=== PATIENT | female | born 1955 | race Two or more races ===

== ENCOUNTER 2017-05-23 17:18 | Inpatient (IN) | payer BC ==
[~2017-05-23] VITALS: Ht 160 cm; Wt 54.4 kg
[2017-05-23] MEDS ORDERED: HYDROmorphone 1mg/ml Carpuject IVP ONE ×3 (17:30→21:00)
[2017-05-23 18:16] LABS: BASOPHILS % (AUTO) 0.9 % (0.0-2.0); LYMPHOCYTES % (AUTO) 45.7 % (20.0-45.0); MEAN CORPUSCULAR HEMOGLOBIN 31.7 PG (27.0-31.0); MEAN CORPUSCULAR HGB CONC 34.1 G/DL (32.0-36.0); MEAN CORPUSCULAR VOLUME 93 FL (80-99); MEAN PLATELET VOLUME 5.9 FL (6.5-10.1); MONOCYTES % (AUTO) 5.1 % (1.0-10.0); NEUTROPHILS % (AUTO) 47.2 % (45.0-75.0); PLATELET COUNT 286 K/UL (150-450); RED BLOOD COUNT 4.09 M/UL (4.20-5.40); RED CELL DISTRIBUTION WIDTH 10.9 % (11.6-14.8); WHITE BLOOD COUNT 7.1 K/UL (4.8-10.8)
[2017-05-23 18:38] LABS: ALANINE AMINOTRANSFERASE 12 U/L (3-33); ALBUMIN/GLOBULIN RATIO 1.4 (1.0-2.7); ANION GAP 21 (5-15); ASPARTATE AMINO TRANSFERASE 17 U/L (5-40); CALCIUM 9.2 mg/dL (8.6-10.2); CARBON DIOXIDE 22 mEQ/L (20-30); CHLORIDE 100 mEQ/L (98-107); CREATININE 0.9 mg/dL (0.5-0.9); GLOMERULAR FILTRATION RATE > 60 mL/min (>60); HEMOLYSIS 14; POTASSIUM 3.5 mEQ/L (3.4-4.9); SODIUM 143 mEQ/L (135-145); TOTAL PROTEIN 7.2 g/dL (6.6-8.7)
[2017-05-23 19:15] VITALS: BP 103/59
[2017-05-23] MEDS ORDERED: ESTRADIOL0.5 MG PO (20:08)
--- NOTE | 2017-05-23 21:31 | Consultation ---
DATE OF CONSULTATION: 05/23/2017 ORTHOPEDIC CONSULTATION CONSULTING PHYSICIAN: Pedro Tavares M.D. CHIEF COMPLAINT: Left hip pain. HISTORY OF PRESENT ILLNESS: The patient is a 61-year-old female, who sustained a mechanical fall. She was diagnosed with displaced femoral neck fracture. She was brought to the ER. Orthopedic consultation obtained for further care and recommendation. PAST MEDICAL HISTORY: Reviewed from the intake chart. PAST SURGICAL HISTORY: Reviewed from the intake chart. MEDICATIONS: Reviewed from the intake chart. PHYSICAL EXAMINATION: EXTREMITIES: The patient is in moderate discomfort. She has short and internally rotated left hip. She has posterior calf soft. Dorsalis pedis +2. DIAGNOSTIC DATA: Imaging studies showed displaced femoral neck fracture. ASSESSMENT: Left displaced femoral neck fracture. DISCUSSION: At this point, recommend this patient with left total hip arthroplasty, given her age and activity level. Risks, limitations, expectations, and complications related to the procedure were discussed in detail. All questions were answered. We will proceed with surgery tomorrow. She will be made NPO in anticipation of surgery tomorrow. Risks, limitations, and expectations related to the procedure were discussed in detail. All questions were addressed. Pedro Tavares M.D. DR: SHELLI JOB#: [id number] CC:
[2017-05-23 21:34] VITALS: BP 110/72
[2017-05-23] MEDS ORDERED: Miralax 17gm pkt ORAL PRN (21:45)
[2017-05-23] MEDS ORDERED: Zolpidem 5mg tab ORAL PRN (21:45)
[2017-05-23] MEDS: Morphine Sulfate 2mg/ml Inj IVP PRN (22:31)
[2017-05-23 22:39] VITALS: BP 130/77
--- NOTE | 2017-05-23 23:06 | Emergency Room Report ---
History of Present Illness General Chief Complaint: Pain Source: Patient Present Illness HPI 61-year-old female presents ED complaining of left hip pain and shortening. 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 Denies hitting her head or LOC. Son and bedside and corroborates this story. Patient notes 10 out of 10 pain to the left hip, sharp, nonradiating. Unable to bear weight. No other aggravating relieving factors. Denies any other associated Allergies: Coded Allergies: No Known Allergies (Unverified , 05/23/17) Patient History Past Medical History: none Past Surgical History: none Pertinent Family History: none Social History: Denies: alcohol use, drug use, smoking Now: No Immunizations: UTD Reviewed Nursing Documentation: PMH: Agreed, PSxH: Agreed Nursing Documentation-PMH Past Medical History: No Stated History Review of Systems All Other Systems: negative except mentioned in HPI Physical Exam Vital Signs Date Time Temp Pulse Resp B/P Pulse Ox O2 Delivery O2 Flow Rate FiO2 05/23/17 17:14 98.1 80 16 120/60 100 Room Air 05/23/17 19:15 1.0 Sp02 EP Interpretation: reviewed, normal General Appearance: alert, GCS 15, non-toxic, moderate distress Head: normocephalic, atraumatic Eyes: bilateral eye PERRL, bilateral eye normal inspection ENT: hearing grossly normal, normal pharynx, no angioedema, normal voice Neck: full range of motion, supple/symm/no masses Respiratory: chest non-tender, lungs clear, normal breath sounds, speaking full sentences Cardiovascular #1: regular rate, rhythm, no edema Cardiovascular #2: 2+ carotid (R), 2+ carotid (L), 2+ radial (R), 2+ radial (L) , 2+ dorsalis pedis (R), 2+ dorsalis pedis (L) Gastrointestinal: normal bowel sounds, non tender, soft, non-distended, no guarding, no rebound Rectal: deferred Genitourinary: normal inspection, no CVA tenderness Musculoskeletal: back normal, gait/station normal, tender - shortening L hip Neurologic: alert, oriented x3, responsive, motor strength/tone normal, sensory intact, speech normal Psychiatric: judgement/insight normal, memory normal, mood/affect normal, no suicidal/homicidal ideation Reflexes: 3+ bicep (R), 3+ bicep (L), 3+ tricep (R), 3+ tricep (L), 3+ knee (R) , 3+ knee (L) Skin: normal color, no rash, warm/dry, well hydrated Lymphatic: no adenopathy Medical Decision Making Diagnostic Impression: Primary Impression: Left Hip Fracture ER Course Hospital Course 61-year-old female presents to ED with L hip pain and shortening s/p fall Differential diagnoses include: fracture, dislocation, contusion Clinical course Patient placed on stretcher. After initial history and physical I ordered labs , pain medication and imaging studies Labs reviewed-no leukocytosis noted, electrolytes okay, hemoglobin/hematocrit okay Femur x-ray shows shortening of femur consistent with fracture CT Pelvis shows L femoral neck fx Case discussed with Dr. Tavares who agreed to consult on this case. Case discussed with Dr. Blank who agreed to accept the patient to his service for further care and support i. I feel this is a highly complex case requiring extensive working including EKG/Rhythm strip, Xray/CT/US, Blood/urine lab work, repeat exams while in ED, and administration of strong opiates/narcotics for pain control, admission to hospital or close patient follow up. Diagnosis - L hip fracture Admitted to floor in serious condition Labs Test 05/23/17 17:35 White Blood Count 7.1 K/UL (4.8-10.8) Red Blood Count 4.09 M/UL (4.20-5.40) Hemoglobin 13.0 G/DL (12.0-16.0) Hematocrit 38.0 % (37.0-47.0) Mean Corpuscular Volume 93 FL (80-99) Mean Corpuscular Hemoglobin 31.7 PG (27.0-31.0) Mean Corpuscular Hemoglobin Concent 34.1 G/DL (32.0-36.0) Red Cell Distribution Width 10.9 % (11.6-14.8) Platelet Count 286 K/UL (150-450) Mean Platelet Volume 5.9 FL (6.5-10.1) Neutrophils (%) (Auto) 47.2 % (45.0-75.0) Lymphocytes (%) (Auto) 45.7 % (20.0-45.0) Monocytes (%) (Auto) 5.1 % (1.0-10.0) Eosinophils (%) (Auto) 1.0 % (0.0-3.0) Basophils (%) (Auto) 0.9 % (0.0-2.0) Prothrombin Time 10.0 SEC (9.30-11.50) Prothromb Time International Ratio 1.0 (0.9-1.1) Activated Partial Thromboplast Time 24 SEC (23-33) Sodium Level 143 mEQ/L (135-145) Potassium Level 3.5 mEQ/L (3.4-4.9) Chloride Level 100 mEQ/L (98-107) Carbon Dioxide Level 22 mEQ/L (20-30) Anion Gap 21 (5-15) Blood Urea Nitrogen 19 mg/dL (7-23) Creatinine 0.9 mg/dL (0.5-0.9) Estimat Glomerular Filtration Rate > 60 mL/min (>60) Glucose Level 107 mg/dL (74-106) Calcium Level 9.2 mg/dL (8.6-10.2) Total Bilirubin 0.3 mg/dL (0.0-1.2) Aspartate Amino Transf (AST/SGOT) 17 U/L (5-40) Alanine Aminotransferase (ALT/SGPT) 12 U/L (3-33) Alkaline Phosphatase 40 U/L (35-104) Total Protein 7.2 g/dL (6.6-8.7) Albumin 4.3 g/dL (3.5-5.2) Globulin 2.9 g/dL Albumin/Globulin Ratio 1.4 (1.0-2.7) Other X-Ray Diagnostic Results X-Ray ordered: L femur # of Views/Limited Vs Complete: 3 View EP Interpretation: Yes Interpretation: no dislocation, no soft tissue swelling, other - L femoral neck fx Indication: Pain Impression: Other - L femoral neck fx Interpreting ER Provider: Jose Alejandro Duron MD CT/MRI/US Diagnostic Results CT/MRI/US Diagnostic Results : Imaging Test Ordered: CT Pelvis Impression L femoral neck fx Last Vital Signs Date Time Temp Pulse Resp B/P Pulse Ox O2 Delivery O2 Flow Rate FiO2 05/23/17 22:39 96.4 82 18 130/77 91 Nasal Cannula 2.0 Status: improved Disposition: ADMITTED INPATIENT Condition: Serious Referrals: NON PHYSICIAN (PCP) JOSE ALEJANDRO DURON M.D. May 23, 2017 23:06
[2017-05-24] VITALS (12 sets, daily range): BP systolic 91–130; BP diastolic 50–73
[2017-05-24] MEDS: LORazepam Inj 2mg/ml 1ml IV PRN ×3 (00:26→11:19)
[2017-05-24] MEDS: Morphine Sulfate 2mg/ml Inj IVP PRN ×2 (02:37→06:54)
[2017-05-24 08:00] LABS: BASOPHILS % (AUTO) 0.3 % (0.0-2.0); LYMPHOCYTES % (AUTO) 9.9 % (20.0-45.0); MEAN CORPUSCULAR HEMOGLOBIN 31.9 PG (27.0-31.0); MEAN CORPUSCULAR HGB CONC 34.2 G/DL (32.0-36.0); MEAN CORPUSCULAR VOLUME 93 FL (80-99); MEAN PLATELET VOLUME 6.4 FL (6.5-10.1); MONOCYTES % (AUTO) 5.9 % (1.0-10.0); NEUTROPHILS % (AUTO) 83.9 % (45.0-75.0); PLATELET COUNT 257 K/UL (150-450); RED BLOOD COUNT 3.92 M/UL (4.20-5.40); RED CELL DISTRIBUTION WIDTH 10.5 % (11.6-14.8); WHITE BLOOD COUNT 8.6 K/UL (4.8-10.8)
[2017-05-24 08:05] LABS: ALANINE AMINOTRANSFERASE 12 U/L (3-33); ALBUMIN/GLOBULIN RATIO 1.5 (1.0-2.7); ANION GAP 17 (5-15); ASPARTATE AMINO TRANSFERASE 15 U/L (5-40); CALCIUM 8.4 mg/dL (8.6-10.2); CARBON DIOXIDE 23 mEQ/L (20-30); CHLORIDE 98 mEQ/L (98-107); CHOLESTEROL 197 mg/dL (< 200); CHOLESTEROL/HDL RATIO 2.1 (3.3-4.4); CREATININE 0.6 mg/dL (0.5-0.9); GLOMERULAR FILTRATION RATE > 60 mL/min (>60); HEMOLYSIS 4; LDL CHOLESTEROL (CALC.) 96 mg/dL (60-99); POTASSIUM 3.7 mEQ/L (3.4-4.9); SODIUM 138 mEQ/L (135-145); TOTAL PROTEIN 6.6 g/dL (6.6-8.7)
[2017-05-24] MEDS ORDERED: D5 1/2NS 1,000 ML IV SCH (10:00)
[2017-05-24] MEDS ORDERED: Morphine Sulfate 2mg/ml Inj IVP PRN ×3 (10:00→16:15)
--- NOTE | 2017-05-24 12:04 | Anethesia Preoperative Eval ---
Anesthesia Pre-op PMH/ROS General Date of Evaluation: May 24, 2017 Time of Evaluation: 11:59 Anesthesiologist: Keerthi ASA Score: ASA 2 Mallampati Score Class I : Soft palate, uvula, fauces, pillars visible Class II: Soft palate, uvula, fauces visible Class III: Soft palate, base of uvula visible Class IV: Only hard plate visible Mallampati Classification: Class II Surgeon: Chaitanya Diagnosis: L femoral neck Fx Surgical Procedure: L total hip arthroplasty Anesthesia History: none Family History: no anesthesia problems Allergies: Coded Allergies: No Known Allergies (Unverified , 05/23/17) Medications: see eMAR Past Medical History Cardiovascular: Denies: CAD, HTN, NV, arrhythmia, other, valve dz Pulmonary: Denies: COPD, KENDRA, asthma, other Gastrointestinal/Genitourinary: Reports: GERD - mild, Denies: CRI, ESRD, other Neurologic/Psychiatric: Denies: CVA, TIA, dementia, depression/anxiety, other Endocrine: Denies: DM, hypothyroidism, other, steroids HEENT: Denies: WASHOE (L), WASHOE (R), cataract (L), cataract (R), glaucoma, other Hematology/Immune: Denies: DVT, anemia, bleeding disorder, other Musculoskeletal/Integumentary: Reports: other - osteoporosis, Denies: DDD, DJD, OA, RA, edema PMH Narrative: admitted for acute fracture 2-ry to mechanical fall . PSxH Narrative: Dental Sx Anesthesia Pre-op Phys. Exam Physician Exam Last Vital Signs Date Time Temp Pulse Resp B/P Pulse Ox O2 Delivery O2 Flow Rate FiO2 05/24/17 08:29 97.0 79 19 107/63 99 Room Air 05/23/17 22:39 2.0 Constitutional: NAD Neurologic: CN 2-12 intact Cardiovascular: RRR, no M/R/G Respiratory: CTA Gastrointestinal: S/NT/ND Airway Exam Mallampati Score: Class II MO: limited Neck: stiff ROM: limited Teeth: intact Dentures: no lower, no upper Anesthesia Pre-op A/P Labs Hematology Test 05/23/17 17:35 05/24/17 07:30 White Blood Count 7.1 K/UL (4.8-10.8) 8.6 K/UL (4.8-10.8) Red Blood Count 4.09 M/UL (4.20-5.40) L 3.92 M/UL (4.20-5.40) L Hemoglobin 13.0 G/DL (12.0-16.0) 12.5 G/DL (12.0-16.0) Hematocrit 38.0 % (37.0-47.0) 36.5 % (37.0-47.0) L Mean Corpuscular Volume 93 FL (80-99) 93 FL (80-99) Mean Corpuscular Hemoglobin 31.7 PG (27.0-31.0) H 31.9 PG (27.0-31.0) H Mean Corpuscular Hemoglobin Concent 34.1 G/DL (32.0-36.0) 34.2 G/DL (32.0-36.0) Red Cell Distribution Width 10.9 % (11.6-14.8) L 10.5 % (11.6-14.8) L Platelet Count 286 K/UL (150-450) 257 K/UL (150-450) Mean Platelet Volume 5.9 FL (6.5-10.1) L 6.4 FL (6.5-10.1) L Neutrophils (%) (Auto) 47.2 % (45.0-75.0) 83.9 % (45.0-75.0) H Lymphocytes (%) (Auto) 45.7 % (20.0-45.0) H 9.9 % (20.0-45.0) L Monocytes (%) (Auto) 5.1 % (1.0-10.0) 5.9 % (1.0-10.0) Eosinophils (%) (Auto) 1.0 % (0.0-3.0) 0.0 % (0.0-3.0) Basophils (%) (Auto) 0.9 % (0.0-2.0) 0.3 % (0.0-2.0) Coagulation Test 05/23/17 17:35 Prothrombin Time 10.0 SEC (9.30-11.50) Prothromb Time International Ratio 1.0 (0.9-1.1) Activated Partial Thromboplast Time 24 SEC (23-33) Chemistry Test 05/23/17 17:35 05/24/17 07:30 Sodium Level 143 mEQ/L (135-145) 138 mEQ/L (135-145) Potassium Level 3.5 mEQ/L (3.4-4.9) 3.7 mEQ/L (3.4-4.9) Chloride Level 100 mEQ/L (98-107) 98 mEQ/L (98-107) Carbon Dioxide Level 22 mEQ/L (20-30) 23 mEQ/L (20-30) Anion Gap 21 (5-15) H 17 (5-15) H Blood Urea Nitrogen 19 mg/dL (7-23) 14 mg/dL (7-23) Creatinine 0.9 mg/dL (0.5-0.9) 0.6 mg/dL (0.5-0.9) Estimat Glomerular Filtration Rate > 60 mL/min (>60) > 60 mL/min (>60) Glucose Level 107 mg/dL (74-106) H 127 mg/dL (74-106) H Calcium Level 9.2 mg/dL (8.6-10.2) 8.4 mg/dL (8.6-10.2) L Total Bilirubin 0.3 mg/dL (0.0-1.2) 0.4 mg/dL (0.0-1.2) Aspartate Amino Transf (AST/SGOT) 17 U/L (5-40) 15 U/L (5-40) Alanine Aminotransferase (ALT/SGPT) 12 U/L (3-33) 12 U/L (3-33) Alkaline Phosphatase 40 U/L (35-104) 36 U/L (35-104) Total Protein 7.2 g/dL (6.6-8.7) 6.6 g/dL (6.6-8.7) Albumin 4.3 g/dL (3.5-5.2) 4.0 g/dL (3.5-5.2) Globulin 2.9 g/dL 2.6 g/dL Albumin/Globulin Ratio 1.4 (1.0-2.7) 1.5 (1.0-2.7) Triglycerides Level 44 mg/dL (< 150) Cholesterol Level 197 mg/dL (< 200) LDL Cholesterol 96 mg/dL (60-99) HDL Cholesterol 92 mg/dL (> 60) H Cholesterol/HDL Ratio 2.1 (3.3-4.4) L Thyroid Stimulating Hormone (TSH) 2.300 uIU/mL (0.300-4.500) Studies Pre-op Studies: EKG - NSR Risk Assessment & Plan Assessment: ASA 2 Plan: SAB vs GA Status Change Before Surgery: No Pre-Antibiotics Drug: as scheduled TOM SALAS M.D. May 24, 2017 12:04
--- NOTE | 2017-05-24 12:05 | Diagnostic Imaging Report ---
Indications: Fall, left thigh trauma and pain Technique: 2 views left thigh Findings: Comparison: None There is a displaced fracture through the subcapital region of the left femoral neck. Mild comminution is suggested. No underlying obvious lytic destructive process. No dislocation, joint space widening, or other acute change identified. IMPRESSION: Displaced fracture left femoral neck
[2017-05-24] MEDS ORDERED: HYDROmorphone 1mg/ml Carpuject IVP PRN (12:15)
--- NOTE | 2017-05-24 13:30 | Diagnostic Imaging Report ---
Indications: Fall, pelvic injury and pain Technique: Continuous helical CT imaging of the pelvis was performed with automatic exposure control on a Siemens sensation [address] scanner. Axial, coronal, sagittal images reconstructed at 3 mm slice thickness. CTDI volume(s): 13 mGy Total DLP: 321 mGy-cm Firings: Comparison: Left femur radiographs performed earlier today Is a fracture through the subcapital region of the left femoral neck with mild comminution. Distal fragment demonstrates partial bone with anterior displacement and posterior angulation relative to the head. No underlying lytic destructive process identified. No significant surrounding soft tissue swelling/fluid. No additional fracture, dislocation, joint space widening, or other acute change identified. L5-S1 disc space mildly narrowed with mild marginal osteophyte formation. IMPRESSION: Left femoral neck fracture as described, acuity indeterminate No other evidence of acute injury Mild degenerative spondylosis
[2017-05-24] MEDS ORDERED: Morphine Sulfate PF 0 ML ONE (14:06)
[2017-05-24] MEDS ORDERED: Kenalog-10 5ml Inj ONE (14:06)
[2017-05-24] MEDS ORDERED: Bupivacaine w/Epi 0.25% 30ml Vial INJ ONE ×2 (14:07→17:35)
[2017-05-24] MEDS ORDERED: Bacitracin 50000 Units Vial ONE (14:07)
[2017-05-24] MEDS ORDERED: Ketorolac 30mg Inj ONE (14:07)
--- NOTE | 2017-05-24 14:14 | History and Physical ---
History of Present Illness General Date patient seen: May 24, 2017 Reason for Hospitalization: Pain Present Illness HPI 61-year-old female without any significant PMHx presented to ED complaining of left hip pain . 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 Denies hitting her head or LOC. . Unable to bear weight. No other aggravating relieving factors. Denies any other associated symptoms. Initial xr showed Left Hip fracture. Pts family has contacted their orthopedist of choice. Allergies: Coded Allergies: No Known Allergies (Unverified , 05/23/17) Medication History Scheduled Estradiol (Estradiol), 0.5 MG PO DAILY, (Reported) Patient History Healthcare decision maker Resuscitation status Advanced Directive on File Review of Systems All Other Systems: negative except mentioned in HPI Physical Exam General Appearance: WD/WN, alert Lines, tubes and drains: peripheral, central line HEENT: normocephalic, atraumatic Neck: non-tender, normal alignment Respiratory/Chest: chest wall non-tender, lungs clear Breasts: no masses Cardiovascular/Chest: normal rate Abdomen: normal bowel sounds, soft Genitourinary/Rectal: normal genital exam Extremities: normal range of motion Skin Exam: normal pigmentation Neurologic: director information security II-XII grossly normal Last 24 Hour Vital Signs Date Time Temp Pulse Resp B/P Pulse Ox O2 Delivery O2 Flow Rate FiO2 05/24/17 12:02 97.0 89 21 118/68 95 Room Air 05/24/17 08:29 97.0 79 19 107/63 99 Room Air 05/24/17 04:00 98.4 78 19 130/73 91 Room Air 05/24/17 03:37 98.1 05/24/17 00:31 98.1 74 20 125/67 89 Room Air 05/23/17 22:39 96.4 82 18 130/77 91 Nasal Cannula 2.0 05/23/17 22:16 97.3 05/23/17 21:34 97.3 84 24 103/59 95 Nasal Cannula 1.0 05/23/17 21:34 97.3 78 24 110/72 97 Nasal Cannula 1.0 05/23/17 19:15 97.3 84 24 103/59 95 Nasal Cannula 1.0 05/23/17 17:14 98.1 80 16 120/60 100 Room Air Intake and Output 05/23/17 05/24/17 19:00 07:00 Intake Total 290 ml Output Total 150 ml Balance 140 ml Intake Oral 290 ml Output Urine Total 150 ml # Voids 2 # Bowel Movements 1 Laboratory Tests Test 05/23/17 17:35 05/24/17 07:30 White Blood Count 7.1 K/UL (4.8-10.8) 8.6 K/UL (4.8-10.8) Red Blood Count 4.09 M/UL (4.20-5.40) L 3.92 M/UL (4.20-5.40) L Hemoglobin 13.0 G/DL (12.0-16.0) 12.5 G/DL (12.0-16.0) Hematocrit 38.0 % (37.0-47.0) 36.5 % (37.0-47.0) L Mean Corpuscular Volume 93 FL (80-99) 93 FL (80-99) Mean Corpuscular Hemoglobin 31.7 PG (27.0-31.0) H 31.9 PG (27.0-31.0) H Mean Corpuscular Hemoglobin Concent 34.1 G/DL (32.0-36.0) 34.2 G/DL (32.0-36.0) Red Cell Distribution Width 10.9 % (11.6-14.8) L 10.5 % (11.6-14.8) L Platelet Count 286 K/UL (150-450) 257 K/UL (150-450) Mean Platelet Volume 5.9 FL (6.5-10.1) L 6.4 FL (6.5-10.1) L Neutrophils (%) (Auto) 47.2 % (45.0-75.0) 83.9 % (45.0-75.0) H Lymphocytes (%) (Auto) 45.7 % (20.0-45.0) H 9.9 % (20.0-45.0) L Monocytes (%) (Auto) 5.1 % (1.0-10.0) 5.9 % (1.0-10.0) Eosinophils (%) (Auto) 1.0 % (0.0-3.0) 0.0 % (0.0-3.0) Basophils (%) (Auto) 0.9 % (0.0-2.0) 0.3 % (0.0-2.0) Prothrombin Time 10.0 SEC (9.30-11.50) Prothromb Time International Ratio 1.0 (0.9-1.1) Activated Partial Thromboplast Time 24 SEC (23-33) Sodium Level 143 mEQ/L (135-145) 138 mEQ/L (135-145) Potassium Level 3.5 mEQ/L (3.4-4.9) 3.7 mEQ/L (3.4-4.9) Chloride Level 100 mEQ/L (98-107) 98 mEQ/L (98-107) Carbon Dioxide Level 22 mEQ/L (20-30) 23 mEQ/L (20-30) Anion Gap 21 (5-15) H 17 (5-15) H Blood Urea Nitrogen 19 mg/dL (7-23) 14 mg/dL (7-23) Creatinine 0.9 mg/dL (0.5-0.9) 0.6 mg/dL (0.5-0.9) Estimat Glomerular Filtration Rate > 60 mL/min (>60) > 60 mL/min (>60) Glucose Level 107 mg/dL (74-106) H 127 mg/dL (74-106) H Calcium Level 9.2 mg/dL (8.6-10.2) 8.4 mg/dL (8.6-10.2) L Total Bilirubin 0.3 mg/dL (0.0-1.2) 0.4 mg/dL (0.0-1.2) Aspartate Amino Transf (AST/SGOT) 17 U/L (5-40) 15 U/L (5-40) Alanine Aminotransferase (ALT/SGPT) 12 U/L (3-33) 12 U/L (3-33) Alkaline Phosphatase 40 U/L (35-104) 36 U/L (35-104) Total Protein 7.2 g/dL (6.6-8.7) 6.6 g/dL (6.6-8.7) Albumin 4.3 g/dL (3.5-5.2) 4.0 g/dL (3.5-5.2) Globulin 2.9 g/dL 2.6 g/dL Albumin/Globulin Ratio 1.4 (1.0-2.7) 1.5 (1.0-2.7) Triglycerides Level 44 mg/dL (< 150) Cholesterol Level 197 mg/dL (< 200) LDL Cholesterol 96 mg/dL (60-99) HDL Cholesterol 92 mg/dL (> 60) H Cholesterol/HDL Ratio 2.1 (3.3-4.4) L Thyroid Stimulating Hormone (TSH) 2.300 uIU/mL (0.300-4.500) Height (Feet): 5 Height (Inches): 3.00 Weight (Pounds): 120 Medications Current Medications Medications (Trade) Dose Ordered Sig/Snow Route PRN Reason Start Time Stop Time Status Last Admin Dose Admin Acetaminophen (Tylenol) 650 mg Q4H PRN ORAL fever 05/23/17 21:45 06/22/17 21:44 Al Hydroxide/Mg Hydroxide (Mylanta II) 30 ml Q6H PRN ORAL dyspepsia 05/23/17 21:45 06/22/17 21:44 Dextrose STAT PRN IV Hypoglycemia 05/23/17 21:45 06/22/17 21:44 Dextrose/Sodium Chloride (D5 0.45% NS) 1,000 ml @ 50 mls/hr Q20H IV 05/24/17 10:00 06/23/17 09:59 05/24/17 10:02 Hydromorphone HCl (Dilaudid) 1 mg Q3H PRN IVP Severe Pain (Pain Scale 7-10) 05/24/17 12:15 05/31/17 12:14 Lorazepam (Ativan 2mg/ml 1ml) 0.5 mg Q4H PRN IV For Anxiety 05/23/17 21:45 05/30/17 21:44 05/24/17 11:19 Ondansetron HCl (Zofran) 4 mg Q6H PRN IVP Nausea & Vomiting 05/23/17 21:45 06/22/17 21:44 Polyethylene Glycol (Miralax) 17 gm HSPRN PRN ORAL Constipation 05/23/17 21:45 06/22/17 21:44 Zolpidem Tartrate (Ambien) 5 mg HSPRN PRN ORAL Insomnia 05/23/17 21:45 06/22/17 21:44 Assessment/Plan Problem List: (1) Hip fracture ICD Codes: S72.009A - Fracture of unspecified part of neck of unspecified femur , initial encounter for closed fracture SNOMED: 053016091 Assessment/Plan symptomatic treatment pain control dvt prophylaxis NPO when pt is going to surgery. YFN POLLOCK May 24, 2017 14:14
--- NOTE | 2017-05-24 14:39 | Diagnostic Imaging Report ---
APPROVED REPORT CPT Code: 06575 Present Symptoms Comments: Hip Fracture BILATERAL: Imaging reveals a patent deep venous system bilaterally. There is no evidence of thrombus within the femoral, popliteal or tibial segments. The greater saphenous veins are also within normal limits. Doppler indicates normal spontaneous flow within these segments.
[2017-05-24] MEDS ORDERED: Bupivacaine 0.5% Inj 30 ml vial INJ ONE (14:41)
[2017-05-24] MEDS ORDERED: Duramorph PF 5mg/10ml amp ONE (14:41)
[2017-05-24] MEDS ORDERED: Sterile Water Irrig 1000ml IRRIG ONE (16:00)
[2017-05-24] MEDS ORDERED: NS Irrig 1000ml ONE (16:00)
[2017-05-24] MEDS ORDERED: Propofol 10mg/ml 20ml IV ONE (16:00)
[2017-05-24] MEDS ORDERED: LR 1000ml ONE (16:00)
[2017-05-24] MEDS ORDERED: Midazolam 2mg/2ml Inj ONE (16:00)
[2017-05-24] MEDS ORDERED: fentaNYL 100 mcg/2 mL IV ONE (16:00)
--- NOTE | 2017-05-24 16:02 | Pre-Procedure Note/Attestation ---
Pre-Procedure Note/Attestation Complete Prior to Procedure Planned Procedure: left Procedure Narrative: eryn Indications for Procedure Pre-Operative Diagnosis: left femoral neck fracture Attestation I attest that I discussed the nature of the procedure; its benefits; risks and complications; and alternatives (and the risks and benefits of such alternatives ), prior to the procedure, with the patient (or the patient's legal billing representative). I attest that, if there was a reasonable possibility of needing a blood transfusion, the patient (or the patient's legal billing representative) was given the [facility] standardized written summary, pursuant to the Candido Rafa Blood Safety Act ([place] Health and Safety Code # 1645, as amended). I attest that I re-evaluated the patient just prior to the surgery and that there has been no change in the patient's H&P, except as documented below: MARISSA WESTBROOK May 24, 2017 16:02
--- NOTE | 2017-05-24 16:07 | Operative Note - PDOC ---
Operative Note Operative Note Pre-op Diagnosis: left femoral neck fracture Procedure: left eryn Post-op Diagnosis: same as pre-op plus Operative Findings: consistent w/pre-op dx studies Anesthesia: regional Specimen: none Complications: none Condition: stable Estimated Blood Loss: none Drains: none Implant(s) used?: Yes MARISSA WESTBROOK May 24, 2017 16:07
[2017-05-24] MEDS ORDERED: Milk of Magnesia 30ml Ud ORAL PRN (16:15)
[2017-05-24] MEDS ORDERED: Morphine Sulfate 4mg/ml Inj IVP PRN (16:15)
[2017-05-24] MEDS ORDERED: oxyCODONE 5mg IR tab ORAL PRN (16:15)
[2017-05-24] MEDS ORDERED: Tranexamic Acid 1,000 MG in NS 65 ML IVPB ONE (16:20)
[2017-05-24] MEDS ORDERED: Hydromorphone 0.5mg/0.5ml inj IVP PRN (17:00)
[2017-05-24] MEDS ORDERED: Midazolam 2mg/2ml Inj IVP PRN (17:00)
[2017-05-24] MEDS ORDERED: DiphenhydrAMINE 50mg/ml Inj IVP PRN (17:00)
[2017-05-24] MEDS ORDERED: LR 1000ml 1,000 ML IVLG SCH (17:30)
--- NOTE | 2017-05-24 18:53 | Immediate Post-Op Evaluation ---
Immediate Post-Op Evalulation Immediate Post-Op Evalulation Procedure: L total hip arthroplasty Date of Evaluation: May 24, 2017 Time of Evaluation: 18:10 IV Fluids: 1200 Blood Products: none Estimated Blood Loss: 250 Urinary Output: 200 Blood Pressure Systolic: 104 Blood Pressure Diastolic: 58 Pulse Rate: 72 Respiratory Rate: 20 O2 Sat by Pulse Oximetry: 99 Temperature (Fahrenheit): 97.6 Pain Score (1-10): 2 Nausea: No Vomiting: No Complications none Patient Status: awake, patent, none Hydration Status: adequate TOM SALAS M.D. May 24, 2017 18:53
[2017-05-24] MEDS: D5 1/2NS w/KCl 20mEq 1,000 ML IV SCH (21:27)
[2017-05-24] MEDS: Docusate 100mg cap ORAL SCH (21:27)
[2017-05-24] MEDS: Aspirin EC 325mg tab ORAL SCH (21:27)
[2017-05-24] MEDS: ceFAZolin sod 2 GM in D5W 110 ML IV SCH (21:28)
[2017-05-24] MEDS: oxyCONTIN 20mg tab ORAL SCH (21:28)
[2017-05-25] VITALS: BP 101/54
--- NOTE | 2017-05-25 03:45 | Operative Note - Dictated ---
DATE OF OPERATION: 05/24/2017 NOTE: "POOR AUDIO QUALITY" PREOPERATIVE DIAGNOSES: 1. Left displaced femoral neck fracture. 2. Left hip arthritis. POSTOPERATIVE DIAGNOSES: 1. Left displaced femoral neck fracture. 2. Left hip arthritis. PROCEDURE: Left total hip arthroplasty. SURGEON: Pedro Tavares M.D. ANESTHESIA: Spinal with local. INDICATION FOR PROCEDURE: The patient is a 61-year-old female, who sustained a mechanical fall. She was diagnosed with displaced femoral neck fracture. She was indicated for operative fixation with left total hip arthroplasty. Alternatives including hemiarthroplasty was discussed with the patient. Pros and cons for each were discussed. Given her age and activity level, total hip replacement was selected. Risks, limitations, expectations, and complications of procedure were discussed in detail. All questions were addressed. DESCRIPTION OF PROCEDURE: After informed consent was obtained, the patient was brought to the operating room and placed under spinal anesthesia. Mclean catheter was placed. Ancef was administered. The patient was then carefully placed in a lateral decubitus position. Left hip was prepped and draped in a sterile manner. Time-out was performed. Posterior lateral skin incision was then made. Fascia ora was incised. Piriformis was identified. The piriformis and short external rotation was performed. The capsule was teed and tagged with #2 FiberWire. In situ neck cut was made below the femoral neck fracture was made. Femoral head was removed. Sequential reaming up to 47 was performed. A 50 mm shell was selected. It was impacted into place. A neutral liner was then placed. Sequential broaching up to size 4 was performed. A size 4 high offset 0 head neck combo was selected. Hip was reduced. Radiographs showed the leg lengths were equal. It seemed like there was more anteversion than I would like. The femoral component was removed. The acetabulum was evaluated. It seemed to be displaced a little bit, therefore, it was corrected and the 50 mm was again impacted into place. This seemed like it was little bit too loose. There may be some impaction grafting of the cancellous bone causing loosening which compromising the fixation; therefore, this was removed. A 50 mm reamer was then placed and then the acetabulum was then reamed and a 52 mm shell was then selected and impacted into place. It was nice and secured. Neutral liner was placed along with the final implants. Hip was taken through the range of motion. Hip flexed to 130 degrees, 90 degrees flexion internal rotation 60 degrees extension and external rotation, leg lengths were equal. At this point, the capsule was approximated with #1 Vicryl suture, 2-0 Vicryl suture, 3-0 Monocryl sutures, and Dermabond. Compression dressing was applied. The patient was awoken and taken to recovery room with stable signs. ESTIMATED BLOOD LOSS: 50 mL. COMPLICATIONS: None. SPECIMENS: Femoral head. IMPLANTS: A size 52 mm acetabular component with neutral liner, size 4 high offset 0 head neck combo, and wasted acetabular size 50 mm acetabular component with neutral liner. Pedro Tavares M.D. DR: MARK JOB#: [id number] CC: BROOKE
[2017-05-25 04:00] VITALS: BP 91/60
[2017-05-25] MEDS: ceFAZolin sod 2 GM in D5W 110 ML IV SCH (05:48)
[2017-05-25 07:05] LABS: MEAN CORPUSCULAR HGB CONC 32.5 G/DL (32.0-36.0); MEAN CORPUSCULAR VOLUME 95 FL (80-99); MEAN PLATELET VOLUME 6.7 FL (6.5-10.1); PLATELET COUNT 220 K/UL (150-450); RED BLOOD COUNT 3.44 M/UL (4.20-5.40); RED CELL DISTRIBUTION WIDTH 10.9 % (11.6-14.8); WHITE BLOOD COUNT 10.2 K/UL (4.8-10.8)
[2017-05-25 07:30] LABS: ANION GAP 10 (5-15); CALCIUM 8.2 mg/dL (8.6-10.2); CARBON DIOXIDE 25 mEQ/L (20-30); CHLORIDE 103 mEQ/L (98-107); CREATININE 0.7 mg/dL (0.5-0.9); GLOMERULAR FILTRATION RATE > 60 mL/min (>60); HEMOLYSIS 2; POTASSIUM 4.1 mEQ/L (3.4-4.9); SODIUM 138 mEQ/L (135-145)
[2017-05-25 08:00] VITALS: BP 105/60
[2017-05-25] MEDS: Aspirin EC 325mg tab ORAL SCH ×2 (09:27→18:55)
[2017-05-25] MEDS: D5 1/2NS w/KCl 20mEq 1,000 ML IV SCH ×2 (09:28→22:20)
[2017-05-25] MEDS: oxyCONTIN 20mg tab ORAL SCH ×2 (09:28→21:07)
[2017-05-25] MEDS: celeBREX 200mg Cap **SURGERY PATIENTS ONLY ORAL SCH (09:28)
[2017-05-25] MEDS: Docusate 100mg cap ORAL SCH ×3 (09:28→18:55)
--- NOTE | 2017-05-25 09:29 | 48 Hour Post Anesthesia Eval ---
Post Anesthesia Evaluation Procedure: L total hip arthroplasty Date of Evaluation: May 25, 2017 Time of Evaluation: 07:11 Blood Pressure Systolic: 105 0: 60 Pulse Rate: 77 Respiratory Rate: 16 Temperature (Fahrenheit): 98.2 O2 Sat by Pulse Oximetry: 93 Airway: patent Nausea: No Vomiting: No Pain Intensity: 2 Hydration Status: adequate Cardiopulmonary Status: Stable Mental Status/LOC: patient returned to baseline Follow-up Care/Observations: 0 Post-Anesthesia Complications: 0 Follow-up care needed: N/A Fernando Becker MD May 25, 2017 09:29
[2017-05-25 09:52] LABS: BAND NEUTROPHILS % (MANUAL) 0 % (0-8); BASOPHILS % (MANUAL) 0 % (0-2); EOSINOPHILS % (MANUAL) 0 % (0-3); HYPOCHROMASIA 1+; LYMPHOCYTES % (MANUAL) 5 % (20-45); NEUTROPHILS % (MANUAL) 88 % (45-75); PLATELET ESTIMATE ADEQUATE; PLATELET MORPHOLOGY NORMAL; TOTAL CELLS COUNTED 100
--- NOTE | 2017-05-25 10:25 | Diagnostic Imaging Report ---
Indication: POST-OP Technique: One view of the pelvis intraoperative Comparison: 05/23/2017 Findings: Single intraoperative image demonstrates an acetabular cup and a left femoral broach Impression: Intraoperative imaging, as described
[2017-05-25 12:00] VITALS: BP 131/68
--- NOTE | 2017-05-25 12:30 | Progress Note ---
DATE: 05/25/2017 SUBJECTIVE: The patient is postop day #1, status post left total hip arthroplasty. She is actually doing very well. She is tolerating by p.o.. She has minimal pain. PHYSICAL EXAMINATION: Examination shows the patient is alert and oriented. She is resting comfortably in bed. Vital signs afebrile. Stable vital signs. Left hip incision is clean, dry, and intact. The patient reflexes tender fingers or toes. Posterior calf is soft. IMAGING: Imaging studies show implant in good position. ASSESSMENT: Status post left total hip arthroplasty. DISCUSSION: At this point, we are going to discontinue the catheter. We are going to workup with PT.OT. We will work on discharge plan for the patient. She will be maintained on aspirin for DVT prophylaxis given her age, activity level, and prophylaxis. Pedro Tavares M.D. DR: MICHAEL JOB#: [id number] CC:
--- NOTE | 2017-05-25 15:21 | Pulmonology Progress Note ---
Assessment/Plan Problems: (1) Hip fracture Assessment/Plan tolerated surgery very well d/c abx, had skin rash benadryl prn dc planning in am Subjective ROS Limited/Unobtainable: No Constitutional: Reports: no symptoms HEENT: Repors: no symptoms Respiratory: Reports: no symptoms Cardiovascular: Reports: no symptoms Allergies: Coded Allergies: No Known Allergies (Unverified , 05/23/17) Objective Last 24 Hour Vital Signs Date Time Temp Pulse Resp B/P Pulse Ox O2 Delivery O2 Flow Rate FiO2 05/25/17 12:00 97.9 73 18 131/68 94 Room Air 05/25/17 09:29 77 16 93 05/25/17 08:00 98.2 77 16 105/60 93 Room Air 05/25/17 04:00 96.9 74 18 91/60 93 Room Air 05/25/17 00:00 98.4 92 18 101/54 92 Nasal Cannula 4.0 05/24/17 20:00 98.3 77 18 107/54 96 Nasal Cannula 4.0 05/24/17 19:05 98.8 71 20 102/50 100 Nasal Cannula 2.0 05/24/17 19:00 71 20 102/50 100 Nasal Cannula 2.0 05/24/17 18:53 72 20 99 05/24/17 18:45 72 20 101/51 100 Nasal Cannula 2.0 05/24/17 18:30 72 20 106/52 100 Nasal Cannula 2.0 05/24/17 18:14 80 20 102/53 100 Nasal Cannula 2.0 05/24/17 18:09 75 20 108/56 100 Nasal Cannula 2.0 05/24/17 18:04 98.8 78 20 91/62 100 Simple Mask 8.0 Intake and Output 05/24/17 05/25/17 19:00 07:00 Intake Total 1150 ml 1095 ml Output Total 450 ml 1275 ml Balance 700 ml -180 ml Intake Oral 240 ml IV Total 1150 ml 855 ml Output Urine Total 250 ml 1275 ml Estimated Blood Loss 200 ml General Appearance: WD/WN HEENT: normocephalic, atraumatic Respiratory/Chest: chest wall non-tender, lungs clear Cardiovascular: normal peripheral pulses Abdomen: normal bowel sounds, soft, non tender, no organomegaly Extremities: no cyanosis, no clubbing Skin: no lesions 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, no motor/sensory deficits Laboratory Tests 05/25/17 05:20: Sodium Level 138, Potassium Level 4.1, Chloride Level 103, Carbon Dioxide Level 25, Anion Gap 10, Blood Urea Nitrogen 12, Creatinine 0.7, Estimat Glomerular Filtration Rate > 60, Glucose Level 172H, Calcium Level 8.2L 05/25/17 05:25: White Blood Count 10.2, Red Blood Count 3.44L, Hemoglobin 10.7L, Hematocrit 32.8L, Mean Corpuscular Volume 95, Mean Corpuscular Hemoglobin 31.0, Mean Corpuscular Hemoglobin Concent 32.5, Red Cell Distribution Width 10.9L, Platelet Count 220, Mean Platelet Volume 6.7, Neutrophils (%) (Auto) , Lymphocytes (%) (Auto) , Monocytes (%) (Auto) , Eosinophils (%) (Auto) , Basophils (%) (Auto) , Differential Total Cells Counted 100, Neutrophils % ( Manual) 88H, Lymphocytes % (Manual) 5L, Monocytes % (Manual) 7, Eosinophils % ( Manual) 0, Basophils % (Manual) 0, Band Neutrophils 0, Platelet Estimate Adequate, Platelet Morphology Normal, Hypochromasia 1+ Current Medications Medications (Trade) Dose Ordered Sig/Snow Route PRN Reason Start Time Stop Time Status Last Admin Dose Admin Al Hydroxide/Mg Hydroxide (Mylanta II) 30 ml Q6H PRN ORAL dyspepsia 05/23/17 21:45 06/22/17 21:44 Aspirin (Ecotrin) 325 mg BID ORAL 05/24/17 21:00 06/23/17 20:59 05/25/17 09:27 Celecoxib (CeleBREX) 200 mg DAILY ORAL 05/25/17 09:00 06/24/17 08:59 05/25/17 09:28 Dextrose STAT PRN IV Hypoglycemia 05/23/17 21:45 06/22/17 21:44 Dextrose/ Electrolytes (D5 0.45%NS W/ KCl 20mEq) 1,000 ml @ 75 mls/hr [id number] IV 05/24/17 20:00 06/23/17 19:59 05/25/17 09:28 Diphenhydramine HCl (Benadryl) 25 mg Q6H PRN ORAL Itching 05/25/17 07:00 06/24/17 06:59 05/25/17 12:39 Docusate Sodium (Colace) 100 mg THREE TIMES A DAY ORAL 05/24/17 21:00 06/23/17 20:59 05/25/17 12:39 Ferrous Sulfate (Feosol) 325 mg THREE TIMES A DAY ORAL 05/24/17 21:00 06/23/17 20:59 05/25/17 12:39 Lorazepam (Ativan 2mg/ml 1ml) 0.5 mg Q4H PRN IV For Anxiety 05/23/17 21:45 05/30/17 21:44 05/24/17 11:19 Magnesium Hydroxide (Mom) 30 ml DAILYPRN PRN ORAL Constipation Second Line Agent 05/24/17 16:15 06/23/17 16:14 Morphine Sulfate (Morphine Sulfate) 1 mg Q3H PRN IVP Pain scale 1-3 05/24/17 16:15 05/31/17 16:14 Morphine Sulfate (Morphine Sulfate) 2 mg Q3H PRN IVP Moderate Pain (Pain Scale 4-6) 05/24/17 16:15 05/31/17 16:14 Morphine Sulfate (Morphine Sulfate) 4 mg Q3H PRN IVP Severe Pain (Pain Scale 7-10) 05/24/17 16:15 05/31/17 16:14 Ondansetron HCl (Zofran) 4 mg Q6H PRN IVP Nausea & Vomiting 05/24/17 16:15 06/23/17 16:14 Oxycodone HCl (OxyCONTIN) 20 mg EVERY 12 HOURS ORAL 05/24/17 21:00 05/31/17 20:59 05/25/17 09:28 Oxycodone HCl (Roxicodone) 5 mg Q4H PRN ORAL Breakthrough Pain 05/24/17 16:15 05/31/17 16:14 Polyethylene Glycol (Miralax) 17 gm HSPRN PRN ORAL Constipation 05/23/17 21:45 06/22/17 21:44 Temazepam (Restoril) 7.5 mg DAILY PRN ORAL Insomnia 05/24/17 16:15 05/31/17 16:14 05/25/17 02:14 YFN POLLOCK May 25, 2017 15:21
[2017-05-25 16:00] VITALS: BP 104/70
--- NOTE | 2017-05-25 17:00 | Consultation ---
History of Present Illness General Date patient seen: May 25, 2017 Time patient seen: 16:52 Chief Complaint: Pain Referring physician: Dr. Blank Reason for Consultation: med mgmt Present Illness HPI 61yo female with no significant pmh who presents with L hip pain. 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 Denies hitting her head or LOC. Unable to bear weight. No other aggravating relieving factors. Denies any other associated symptoms. In ED, pt found to have L hip fracture. Pt underwent L hip total arthroplasty on 05/24 which she has tolerated well. Pt working w/ PT/OT and plan is to go to SNF. Pt states pain controlled. No BM yet. Denies f/c, n/v, d/c, chest pain, SOB. Allergies: Coded Allergies: No Known Allergies (Unverified , 05/23/17) Medication History Scheduled Estradiol (Estradiol), 0.5 MG PO DAILY, (Reported) Patient History History Provided By: Patient, Medical Record Healthcare decision maker Resuscitation status Advanced Directive on File Past Medical/Surgical History Past Medical/Surgical History: (1) No significant past medical history Family History Family History: (1) No significant family history Social History Social History: (1) No significant social history Review of Systems ROS Narrative CONSTITUTIONAL: No weight loss, fever, chills, weakness or fatigue. HEENT: Eyes: No visual loss, blurred vision, double vision or yellow sclerae. Ears, Nose, Throat: No hearing loss, sneezing, congestion, runny nose or sore throat. SKIN: No rash or itching. CARDIOVASCULAR: No chest pain, chest pressure or chest discomfort. No palpitations or edema. RESPIRATORY: No shortness of breath, cough or sputum. GASTROINTESTINAL: No anorexia, nausea, vomiting or diarrhea. No abdominal pain or blood. NEUROLOGICAL: No headache, dizziness, syncope, paralysis, ataxia, numbness or tingling in the extremities. No change in bowel or bladder control. MUSCULOSKELETAL: No muscle, back pain, joint pain or stiffness. HEMATOLOGIC: No anemia, bleeding or bruising. LYMPHATICS: No enlarged nodes. No history of splenectomy. PSYCHIATRIC: No history of depression or anxiety. ENDOCRINOLOGIC: No reports of sweating, cold or heat intolerance. No polyuria or polydipsia. ALLERGIES: No history of asthma, hives, eczema or rhinitis. Physical Exam Physical Exam Narrative General: alert, cooperative, no distress, appears stated age Head: normocephalic, without obvious abnormality, atraumatic Eyes: conjunctivae/corneas clear. PERRL, EOM's intact Throat: lips, mucosa, and tongue normal. MMM Neck: supple, symmetrical, trachea midline, and no JVD Lungs: clear to auscultation bilaterally Heart: regular rate and rhythm, S1, S2 normal, no murmur, click, rub or gallop Abdomen: soft, non-tender, non-distended, bowel sounds normal; no masses or organomegaly Extremities: extremities normal, atraumatic, no cyanosis or edema L hip dressing c/d/i Pulses: 2+ and symmetric Skin: skin color, texture, turgor normal; no rashes or lesions Neurologic: grossly normal, no focal deficits Last 24 Hour Vital Signs Date Time Temp Pulse Resp B/P Pulse Ox O2 Delivery O2 Flow Rate FiO2 05/25/17 16:00 98.2 91 20 104/70 93 Room Air 05/25/17 12:00 97.9 73 18 131/68 94 Room Air 05/25/17 09:29 77 16 93 05/25/17 08:00 98.2 77 16 105/60 93 Room Air 05/25/17 04:00 96.9 74 18 91/60 93 Room Air 05/25/17 00:00 98.4 92 18 101/54 92 Nasal Cannula 4.0 05/24/17 20:00 98.3 77 18 107/54 96 Nasal Cannula 4.0 05/24/17 19:05 98.8 71 20 102/50 100 Nasal Cannula 2.0 05/24/17 19:00 71 20 102/50 100 Nasal Cannula 2.0 05/24/17 18:53 72 20 99 05/24/17 18:45 72 20 101/51 100 Nasal Cannula 2.0 05/24/17 18:30 72 20 106/52 100 Nasal Cannula 2.0 05/24/17 18:14 80 20 102/53 100 Nasal Cannula 2.0 05/24/17 18:09 75 20 108/56 100 Nasal Cannula 2.0 05/24/17 18:04 98.8 78 20 91/62 100 Simple Mask 8.0 Intake and Output 05/24/17 05/25/17 19:00 07:00 Intake Total 1150 ml 1095 ml Output Total 450 ml 1275 ml Balance 700 ml -180 ml Intake Oral 240 ml IV Total 1150 ml 855 ml Output Urine Total 250 ml 1275 ml Estimated Blood Loss 200 ml Laboratory Tests Test 05/25/17 05:20 05/25/17 05:25 Sodium Level 138 mEQ/L (135-145) Potassium Level 4.1 mEQ/L (3.4-4.9) Chloride Level 103 mEQ/L (98-107) Carbon Dioxide Level 25 mEQ/L (20-30) Anion Gap 10 (5-15) Blood Urea Nitrogen 12 mg/dL (7-23) Creatinine 0.7 mg/dL (0.5-0.9) Estimat Glomerular Filtration Rate > 60 mL/min (>60) Glucose Level 172 mg/dL (74-106) H Calcium Level 8.2 mg/dL (8.6-10.2) L White Blood Count 10.2 K/UL (4.8-10.8) Red Blood Count 3.44 M/UL (4.20-5.40) L Hemoglobin 10.7 G/DL (12.0-16.0) L Hematocrit 32.8 % (37.0-47.0) L Mean Corpuscular Volume 95 FL (80-99) Mean Corpuscular Hemoglobin 31.0 PG (27.0-31.0) Mean Corpuscular Hemoglobin Concent 32.5 G/DL (32.0-36.0) Red Cell Distribution Width 10.9 % (11.6-14.8) L Platelet Count 220 K/UL (150-450) Mean Platelet Volume 6.7 FL (6.5-10.1) Neutrophils (%) (Auto) % (45.0-75.0) Lymphocytes (%) (Auto) % (20.0-45.0) Monocytes (%) (Auto) % (1.0-10.0) Eosinophils (%) (Auto) % (0.0-3.0) Basophils (%) (Auto) % (0.0-2.0) Differential Total Cells Counted 100 Neutrophils % (Manual) 88 % (45-75) H Lymphocytes % (Manual) 5 % (20-45) L Monocytes % (Manual) 7 % (1-10) Eosinophils % (Manual) 0 % (0-3) Basophils % (Manual) 0 % (0-2) Band Neutrophils 0 % (0-8) Platelet Estimate Adequate Platelet Morphology Normal Hypochromasia 1+ Height (Feet): 5 Height (Inches): 3.00 Weight (Pounds): 120 Medications Current Medications Medications (Trade) Dose Ordered Sig/Snow Route PRN Reason Start Time Stop Time Status Last Admin Dose Admin Al Hydroxide/Mg Hydroxide (Mylanta II) 30 ml Q6H PRN ORAL dyspepsia 05/23/17 21:45 06/22/17 21:44 Aspirin (Ecotrin) 325 mg BID ORAL 05/24/17 21:00 06/23/17 20:59 05/25/17 09:27 Celecoxib (CeleBREX) 200 mg DAILY ORAL 05/25/17 09:00 06/24/17 08:59 05/25/17 09:28 Dextrose STAT PRN IV Hypoglycemia 05/23/17 21:45 06/22/17 21:44 Dextrose/ Electrolytes (D5 0.45%NS W/ KCl 20mEq) 1,000 ml @ 75 mls/hr [id number] IV 05/24/17 20:00 06/23/17 19:59 05/25/17 09:28 Diphenhydramine HCl (Benadryl) 25 mg Q6H PRN ORAL Itching 05/25/17 07:00 06/24/17 06:59 05/25/17 12:39 Docusate Sodium (Colace) 100 mg THREE TIMES A DAY ORAL 05/24/17 21:00 06/23/17 20:59 05/25/17 12:39 Ferrous Sulfate (Feosol) 325 mg THREE TIMES A DAY ORAL 05/24/17 21:00 06/23/17 20:59 05/25/17 12:39 Lorazepam (Ativan 2mg/ml 1ml) 0.5 mg Q4H PRN IV For Anxiety 05/23/17 21:45 05/30/17 21:44 05/24/17 11:19 Magnesium Hydroxide (Mom) 30 ml DAILYPRN PRN ORAL Constipation Second Line Agent 05/24/17 16:15 06/23/17 16:14 Morphine Sulfate (Morphine Sulfate) 1 mg Q3H PRN IVP Pain scale 1-3 05/24/17 16:15 05/31/17 16:14 Morphine Sulfate (Morphine Sulfate) 2 mg Q3H PRN IVP Moderate Pain (Pain Scale 4-6) 05/24/17 16:15 05/31/17 16:14 Morphine Sulfate (Morphine Sulfate) 4 mg Q3H PRN IVP Severe Pain (Pain Scale 7-10) 05/24/17 16:15 05/31/17 16:14 Ondansetron HCl (Zofran) 4 mg Q6H PRN IVP Nausea & Vomiting 05/24/17 16:15 06/23/17 16:14 Oxycodone HCl (OxyCONTIN) 20 mg EVERY 12 HOURS ORAL 05/24/17 21:00 05/31/17 20:59 05/25/17 09:28 Oxycodone HCl (Roxicodone) 5 mg Q4H PRN ORAL Breakthrough Pain 05/24/17 16:15 05/31/17 16:14 Polyethylene Glycol (Miralax) 17 gm HSPRN PRN ORAL Constipation 05/23/17 21:45 06/22/17 21:44 Temazepam (Restoril) 7.5 mg DAILY PRN ORAL Insomnia 05/24/17 16:15 05/31/17 16:14 05/25/17 02:14 Assessment/Plan Problem List: (1) Hip fracture ICD Codes: S72.009A - Fracture of unspecified part of neck of unspecified femur , initial encounter for closed fracture SNOMED: 538950523 (2) Acute blood loss anemia Assessment & Plan: expected postop ICD Codes: D62 - Acute posthemorrhagic anemia SNOMED: 567954991 Status: stable Assessment/Plan - s/p L TORRES on 05/24/17, POD#1 - encourage mobilization/ambulation - encourage incentive spirometry to optimize pulmonary hygiene - DVT/GI prophylaxis as appropriate - ctm CBC and hemodynamics - ctm electrolytes, adjust/replete prn - PT/OT - pain control, supportive care, bowel regimen - check vitamin b12 level - monitor cbc - DC planning, likely to SNF tomorrow Abisai Campa M.D. May 25, 2017 17:00
[2017-05-25 21:00] VITALS: BP 124/78
[2017-05-26 00:18] VITALS: BP 120/71
[2017-05-26 04:00] VITALS: BP 100/61
[2017-05-26] MEDS: D5 1/2NS w/KCl 20mEq 1,000 ML IV SCH (04:15)
[2017-05-26 08:00] VITALS: BP 114/77
[2017-05-26] MEDS: Aspirin EC 325mg tab ORAL SCH ×2 (09:07→17:34)
[2017-05-26] MEDS: Mylanta II UD 30ml ORAL PRN (09:07)
[2017-05-26] MEDS: Docusate 100mg cap ORAL SCH ×3 (09:07→17:33)
[2017-05-26] MEDS: oxyCONTIN 20mg tab ORAL SCH ×2 (09:07→21:00)
[2017-05-26] MEDS: celeBREX 200mg Cap **SURGERY PATIENTS ONLY ORAL SCH (09:07)
[2017-05-26 09:45] LABS: BASOPHILS % (AUTO) 0.4 % (0.0-2.0); LYMPHOCYTES % (AUTO) 11.7 % (20.0-45.0); MEAN CORPUSCULAR HEMOGLOBIN 31.3 PG (27.0-31.0); MEAN CORPUSCULAR VOLUME 95 FL (80-99); MEAN PLATELET VOLUME 5.9 FL (6.5-10.1); MONOCYTES % (AUTO) 9.9 % (1.0-10.0); PLATELET COUNT 271 K/UL (150-450); RED BLOOD COUNT 3.64 M/UL (4.20-5.40); WHITE BLOOD COUNT 9.7 K/UL (4.8-10.8)
[2017-05-26] MEDS ORDERED: Morphine Sulfate 2mg/ml Inj IVP PRN (14:45)
[2017-05-26] MEDS ORDERED: traMADol 50mg tab ORAL PRN ×2 (14:45)
[2017-05-26 16:00] VITALS: BP 123/78
[2017-05-26] MEDS ORDERED: oxyCODONE 5mg IR tab ORAL PRN (17:00)
[2017-05-26] MEDS ORDERED: Fleet's Mineral Oil Enema RECTAL PRN (18:15)
--- NOTE | 2017-05-26 18:40 | Pulmonology Progress Note ---
Assessment/Plan Problems: (1) Hip fracture Assessment/Plan tolerated surgery very well MOM and senna for constipation benadryl prn pt doens't want to leave today dc planning in am Subjective ROS Limited/Unobtainable: No Constitutional: Reports: no symptoms HEENT: Repors: no symptoms Respiratory: Reports: no symptoms Allergies: Coded Allergies: No Known Allergies (Unverified , 05/23/17) Objective Last 24 Hour Vital Signs Date Time Temp Pulse Resp B/P Pulse Ox O2 Delivery O2 Flow Rate FiO2 05/26/17 16:00 97.5 80 18 123/78 94 Room Air 05/26/17 08:00 97.9 100 19 114/77 93 Room Air 05/26/17 04:00 98.1 71 18 100/61 93 Room Air 05/26/17 00:18 97.8 75 19 120/71 94 Room Air 05/25/17 21:00 97.9 82 18 124/78 93 Room Air Intake and Output 05/25/17 05/26/17 19:00 07:00 Intake Total 525 ml 1260 ml Output Total 151 ml Balance 374 ml 1260 ml Intake Oral 450 ml 360 ml IV Total 75 ml 900 ml Output Urine Total 151 ml # Voids 1 3 General Appearance: WD/WN HEENT: normocephalic Respiratory/Chest: chest wall non-tender, lungs clear, normal breath sounds Breasts: no masses Cardiovascular: no gallop/murmur Abdomen: normal bowel sounds Genitourinary: normal external genitalia Extremities: no cyanosis, no clubbing Laboratory Tests 05/26/17 08:55: White Blood Count 9.7, Red Blood Count 3.64L, Hemoglobin 11.4L, Hematocrit 34.5L , Mean Corpuscular Volume 95, Mean Corpuscular Hemoglobin 31.3H, Mean Corpuscular Hemoglobin Concent 33.0, Red Cell Distribution Width 11.0L, Platelet Count 271, Mean Platelet Volume 5.9L, Neutrophils (%) (Auto) 78.0H, Lymphocytes (%) (Auto) 11.7L, Monocytes (%) (Auto) 9.9, Eosinophils (%) (Auto) 0.0, Basophils (%) (Auto) 0.4, Vitamin D 25-Hydroxy [Pending], 25-Hydroxy Vitamin D2 [Pending], 25-Hydroxy Vitamin D3 [Pending] Current Medications Medications (Trade) Dose Ordered Sig/Snow Route PRN Reason Start Time Stop Time Status Last Admin Dose Admin Acetaminophen (Tylenol) 650 mg Q4H PRN ORAL Mild Pain/Temp > 100.5 05/26/17 14:45 06/25/17 14:44 05/26/17 17:35 Al Hydroxide/Mg Hydroxide (Mylanta II) 30 ml Q6H PRN ORAL dyspepsia 05/23/17 21:45 06/22/17 21:44 05/26/17 09:07 Aspirin (Ecotrin) 325 mg BID ORAL 05/24/17 21:00 06/23/17 20:59 05/26/17 17:34 Celecoxib (CeleBREX) 200 mg DAILY ORAL 05/25/17 09:00 06/24/17 08:59 05/26/17 09:07 Dextrose STAT PRN IV Hypoglycemia 05/23/17 21:45 06/22/17 21:44 Dextrose/ Electrolytes (D5 0.45%NS W/ KCl 20mEq) 1,000 ml @ 75 mls/hr [id number] IV 05/24/17 20:00 06/23/17 19:59 05/26/17 04:15 Diphenhydramine HCl (Benadryl) 25 mg Q6H PRN ORAL Itching 05/25/17 07:00 06/24/17 06:59 05/25/17 22:13 Docusate Sodium (Colace) 100 mg THREE TIMES A DAY ORAL 05/24/17 21:00 06/23/17 20:59 05/26/17 17:33 Ferrous Sulfate (Feosol) 325 mg THREE TIMES A DAY ORAL 05/24/17 21:00 06/23/17 20:59 05/26/17 17:34 Lorazepam (Ativan 2mg/ml 1ml) 0.5 mg Q4H PRN IV For Anxiety 05/23/17 21:45 05/30/17 21:44 05/24/17 11:19 Magnesium Hydroxide (Mom) 30 ml DAILYPRN PRN ORAL Constipation Second Line Agent 05/24/17 16:15 06/23/17 16:14 05/26/17 14:19 Mineral Oil (Fleet's Mineral Oil Enema) 133 ml DAILY PRN RECTAL Constipation 05/26/17 18:15 06/25/17 18:14 UNV Morphine Sulfate (Morphine Sulfate) 1 mg Q4H PRN IVP Severe Breakthru Pain (>7) 05/26/17 14:45 06/02/17 14:44 Ondansetron HCl (Zofran) 4 mg Q6H PRN IVP Nausea & Vomiting 05/24/17 16:15 06/23/17 16:14 05/26/17 04:23 Oxycodone HCl (OxyCONTIN) 20 mg EVERY 12 HOURS ORAL 05/24/17 21:00 05/31/17 20:59 05/26/17 09:07 Oxycodone HCl (Roxicodone) 5 mg Q4H PRN ORAL MILD-MOD BREAKTHRU PAIN 05/26/17 17:00 05/31/17 16:14 Polyethylene Glycol (Miralax) 17 gm HSPRN PRN ORAL Constipation 05/23/17 21:45 06/22/17 21:44 Sennosides (Senokot) 8.6 mg DAILY ORAL 05/26/17 18:00 06/25/17 17:59 05/26/17 17:31 Temazepam (Restoril) 7.5 mg DAILY PRN ORAL Insomnia 05/24/17 16:15 05/31/17 16:14 05/25/17 02:14 Tramadol HCl (Ultram) 50 mg Q4HR PRN ORAL Moderate Pain (Pain Scale 4-6) 05/26/17 14:45 06/02/17 14:44 Tramadol HCl (Ultram) 100 mg Q6H PRN ORAL Severe Pain (Pain Scale 7-10) 05/26/17 14:45 06/02/17 14:44 YFN POLLOCK May 26, 2017 18:40
[2017-05-26 20:00] VITALS: BP 131/58
[2017-05-27] VITALS: BP 116/60
[2017-05-27] MEDS: D5 1/2NS w/KCl 20mEq 1,000 ML IV SCH (01:20)
[2017-05-27 04:00] VITALS: BP 122/67
--- NOTE | 2017-05-27 04:39 | General Progress Note ---
Assessment/Plan Problem List: (1) Hip fracture ICD Codes: S72.009A - Fracture of unspecified part of neck of unspecified femur , initial encounter for closed fracture SNOMED: 403558429 (2) Acute blood loss anemia Assessment & Plan: expected postop ICD Codes: D62 - Acute posthemorrhagic anemia SNOMED: 554038732 (3) Constipation ICD Codes: K59.00 - Constipation, unspecified SNOMED: 60821181 Status: stable Assessment/Plan - s/p L TORRES on 05/24/17, POD#2 - encourage mobilization/ambulation - encourage incentive spirometry to optimize pulmonary hygiene - DVT/GI prophylaxis as appropriate - ctm CBC and hemodynamics - ctm electrolytes, adjust/replete prn - PT/OT - pain control, supportive care, bowel regimen - f/u vitamin D level - monitor cbc - DC planning to [facility] vs SNF Subjective Date patient seen: May 26, 2017 Time patient seen: 14:00 ROS Limited/Unobtainable: No Constitutional: Reports: no symptoms HEENT: Reports: no symptoms Cardiovascular: Reports: no symptoms Respiratory: Reports: no symptoms Gastrointestinal/Abdominal: Reports: constipated Genitourinary: Reports: no symptoms Neurologic/Psychiatric: Reports: no symptoms Endocrine: Reports: no symptoms Hematologic/Lymphatic: Reports: no symptoms Allergies: Coded Allergies: No Known Allergies (Unverified , 05/23/17) All Systems: reviewed and negative except above Subjective Pain controlled Working w/ PT DC planning underway. Family prefers [facility] but insurance has not authorized Objective Last 24 Hour Vital Signs Date Time Temp Pulse Resp B/P Pulse Ox O2 Delivery O2 Flow Rate FiO2 05/27/17 00:00 98.7 72 18 116/60 96 Room Air 05/26/17 21:59 98.6 05/26/17 20:00 98.6 77 18 131/58 96 Room Air 05/26/17 16:00 97.5 80 18 123/78 94 Room Air 05/26/17 08:00 97.9 100 19 114/77 93 Room Air Intake and Output 05/26/17 05/27/17 19:00 07:00 Intake Total 1025 ml Balance 1025 ml Intake Oral 650 ml IV Total 375 ml # Voids 3 Laboratory Tests 05/26/17 08:55: White Blood Count 9.7, Red Blood Count 3.64L, Hemoglobin 11.4L, Hematocrit 34.5L , Mean Corpuscular Volume 95, Mean Corpuscular Hemoglobin 31.3H, Mean Corpuscular Hemoglobin Concent 33.0, Red Cell Distribution Width 11.0L, Platelet Count 271, Mean Platelet Volume 5.9L, Neutrophils (%) (Auto) 78.0H, Lymphocytes (%) (Auto) 11.7L, Monocytes (%) (Auto) 9.9, Eosinophils (%) (Auto) 0.0, Basophils (%) (Auto) 0.4, Vitamin D 25-Hydroxy [Pending], 25-Hydroxy Vitamin D2 [Pending], 25-Hydroxy Vitamin D3 [Pending] Height (Feet): 5 Height (Inches): 3.00 Weight (Pounds): 120 Objective General: alert, cooperative, no distress, appears stated age Head: normocephalic, without obvious abnormality, atraumatic Eyes: conjunctivae/corneas clear. PERRL, EOM's intact Throat: lips, mucosa, and tongue normal. MMM Neck: supple, symmetrical, trachea midline, and no JVD Lungs: clear to auscultation bilaterally Heart: regular rate and rhythm, S1, S2 normal, no murmur, click, rub or gallop Abdomen: soft, non-tender, non-distended, bowel sounds normal; no masses or organomegaly Extremities: extremities normal, atraumatic, no cyanosis or edema Dressing c/d/i Pulses: 2+ and symmetric Skin: skin color, texture, turgor normal; no rashes or lesions Neurologic: grossly normal, no focal deficits Abisai Campa M.D. May 27, 2017 04:39
[2017-05-27 07:09] LABS: BASOPHILS % (AUTO) 0.7 % (0.0-2.0); EOSINOPHILS % (AUTO) 0.6 % (0.0-3.0); LYMPHOCYTES % (AUTO) 20.5 % (20.0-45.0); MEAN CORPUSCULAR HEMOGLOBIN 31.3 PG (27.0-31.0); MEAN CORPUSCULAR HGB CONC 32.9 G/DL (32.0-36.0); MEAN CORPUSCULAR VOLUME 95 FL (80-99); MEAN PLATELET VOLUME 6.6 FL (6.5-10.1); MONOCYTES % (AUTO) 8.4 % (1.0-10.0); NEUTROPHILS % (AUTO) 69.8 % (45.0-75.0); PLATELET COUNT 258 K/UL (150-450); RED BLOOD COUNT 3.44 M/UL (4.20-5.40); RED CELL DISTRIBUTION WIDTH 11.1 % (11.6-14.8); WHITE BLOOD COUNT 7.5 K/UL (4.8-10.8)
--- NOTE | 2017-05-27 07:47 | Pulmonology Progress Note ---
Assessment/Plan Assessment/Plan ASSESSMENT s/p mechanical fall Left femoral neck displaced fracture s/p 05/25 left total hip arthroplasty Left hip pain acute blood loss anemia constipation PLAN OF CARE [facility] floor initial imaging with evidence of L femoral neck displaced fracture ( femur X ray and CT pelvis) ortho follows s/p surgery pain management PT eval and rx IS while in bed DVT prophylaxis with ASA gentle hydration iron supplements bowel regimen dc today to SNF for Rehab case discussed and evaluated by supervising physician Subjective Allergies: Coded Allergies: No Known Allergies (Unverified , 05/23/17) Subjective denies hip pain reports not sleeping well last night due to noise in hallway Objective Last 24 Hour Vital Signs Date Time Temp Pulse Resp B/P Pulse Ox O2 Delivery O2 Flow Rate FiO2 05/27/17 04:00 97.8 87 18 122/67 94 Room Air 05/27/17 00:00 98.7 72 18 116/60 96 Room Air 05/26/17 21:59 98.6 05/26/17 20:00 98.6 77 18 131/58 96 Room Air 05/26/17 16:00 97.5 80 18 123/78 94 Room Air 05/26/17 08:00 97.9 100 19 114/77 93 Room Air Intake and Output 05/26/17 05/27/17 19:00 07:00 Intake Total 1025 ml Balance 1025 ml Intake Oral 650 ml IV Total 375 ml # Voids 3 3 # Bowel Movements 2 General Appearance: WD/WN, no acute distress HEENT: normocephalic, atraumatic, anicteric, mucous membranes moist, PERRL Respiratory/Chest: lungs clear, normal breath sounds Cardiovascular: normal peripheral pulses, normal rate, regular rhythm, no JVD Abdomen: normal bowel sounds, soft, non tender, non distended Genitourinary: normal external genitalia Extremities: no edema, pedal pulses normal Skin: other - dressing L hip C/D/I Neurologic/Psychiatric: abnormal gait - with walker , alert, oriented x 3, responsive, other - neurovascualr intact Musculoskeletal: normal muscle bulk Laboratory Tests 05/26/17 08:55: White Blood Count 9.7, Red Blood Count 3.64L, Hemoglobin 11.4L, Hematocrit 34.5L , Mean Corpuscular Volume 95, Mean Corpuscular Hemoglobin 31.3H, Mean Corpuscular Hemoglobin Concent 33.0, Red Cell Distribution Width 11.0L, Platelet Count 271, Mean Platelet Volume 5.9L, Neutrophils (%) (Auto) 78.0H, Lymphocytes (%) (Auto) 11.7L, Monocytes (%) (Auto) 9.9, Eosinophils (%) (Auto) 0.0, Basophils (%) (Auto) 0.4, Vitamin D 25-Hydroxy [Pending], 25-Hydroxy Vitamin D2 [Pending], 25-Hydroxy Vitamin D3 [Pending] 05/27/17 05:30: White Blood Count 7.5, Red Blood Count 3.44L, Hemoglobin 10.8L, Hematocrit 32.8L , Mean Corpuscular Volume 95, Mean Corpuscular Hemoglobin 31.3H, Mean Corpuscular Hemoglobin Concent 32.9, Red Cell Distribution Width 11.1L, Platelet Count 258, Mean Platelet Volume 6.6, Neutrophils (%) (Auto) 69.8, Lymphocytes (%) (Auto) 20.5, Monocytes (%) (Auto) 8.4, Eosinophils (%) (Auto) 0.6, Basophils (%) (Auto) 0.7 Current Medications Medications (Trade) Dose Ordered Sig/Snow Route PRN Reason Start Time Stop Time Status Last Admin Dose Admin Acetaminophen (Tylenol) 650 mg Q4H PRN ORAL Mild Pain/Temp > 100.5 05/26/17 14:45 06/25/17 14:44 05/27/17 04:56 Al Hydroxide/Mg Hydroxide (Mylanta II) 30 ml Q6H PRN ORAL dyspepsia 05/23/17 21:45 06/22/17 21:44 05/26/17 09:07 Aspirin (Ecotrin) 325 mg BID ORAL 05/24/17 21:00 06/23/17 20:59 05/26/17 17:34 Celecoxib (CeleBREX) 200 mg DAILY ORAL 05/25/17 09:00 06/24/17 08:59 05/26/17 09:07 Dextrose STAT PRN IV Hypoglycemia 05/23/17 21:45 06/22/17 21:44 Dextrose/ Electrolytes (D5 0.45%NS W/ KCl 20mEq) 1,000 ml @ 75 mls/hr [id number] IV 05/24/17 20:00 06/23/17 19:59 05/26/17 04:15 Diphenhydramine HCl (Benadryl) 25 mg Q6H PRN ORAL Itching 05/25/17 07:00 06/24/17 06:59 05/27/17 01:29 Docusate Sodium (Colace) 100 mg THREE TIMES A DAY ORAL 05/24/17 21:00 06/23/17 20:59 05/26/17 17:33 Ferrous Sulfate (Feosol) 325 mg THREE TIMES A DAY ORAL 05/24/17 21:00 06/23/17 20:59 05/26/17 17:34 Lorazepam (Ativan 2mg/ml 1ml) 0.5 mg Q4H PRN IV For Anxiety 05/23/17 21:45 05/30/17 21:44 05/24/17 11:19 Magnesium Hydroxide (Mom) 30 ml DAILYPRN PRN ORAL Constipation Second Line Agent 05/24/17 16:15 06/23/17 16:14 05/26/17 14:19 Mineral Oil (Fleet's Mineral Oil Enema) 133 ml DAILY PRN RECTAL Constipation 05/26/17 18:15 06/25/17 18:14 05/26/17 18:55 Morphine Sulfate (Morphine Sulfate) 1 mg Q4H PRN IVP Severe Breakthru Pain (>7) 05/26/17 14:45 06/02/17 14:44 Ondansetron HCl (Zofran) 4 mg Q6H PRN IVP Nausea & Vomiting 05/24/17 16:15 06/23/17 16:14 05/26/17 04:23 Oxycodone HCl (OxyCONTIN) 20 mg EVERY 12 HOURS ORAL 05/24/17 21:00 05/31/17 20:59 05/26/17 21:00 Oxycodone HCl (Roxicodone) 5 mg Q4H PRN ORAL MILD-MOD BREAKTHRU PAIN 05/26/17 17:00 05/31/17 16:14 Polyethylene Glycol (Miralax) 17 gm HSPRN PRN ORAL Constipation 05/23/17 21:45 06/22/17 21:44 Sennosides (Senokot) 8.6 mg DAILY ORAL 05/26/17 18:00 06/25/17 17:59 05/26/17 17:31 Temazepam (Restoril) 7.5 mg DAILY PRN ORAL Insomnia 05/24/17 16:15 05/31/17 16:14 05/25/17 02:14 Tramadol HCl (Ultram) 50 mg Q4HR PRN ORAL Moderate Pain (Pain Scale 4-6) 05/26/17 14:45 06/02/17 14:44 Tramadol HCl (Ultram) 100 mg Q6H PRN ORAL Severe Pain (Pain Scale 7-10) 05/26/17 14:45 06/02/17 14:44 Keith ([facility])Sarita NP May 27, 2017 07:47
[2017-05-27 08:30] VITALS: BP 121/69
[2017-05-27] MEDS: Mylanta II UD 30ml ORAL PRN (08:34)
[2017-05-27] MEDS: Docusate 100mg cap ORAL SCH (08:34)
[2017-05-27] MEDS: celeBREX 200mg Cap **SURGERY PATIENTS ONLY ORAL SCH (08:34)
[2017-05-27] MEDS ORDERED: D5NS 1000ml IV ONE (10:29)
--- NOTE | 2017-05-27 18:37 | General Progress Note ---
Assessment/Plan Problem List: (1) Hip fracture ICD Codes: S72.009A - Fracture of unspecified part of neck of unspecified femur , initial encounter for closed fracture SNOMED: 316349101 (2) Acute blood loss anemia Assessment & Plan: expected postop ICD Codes: D62 - Acute posthemorrhagic anemia SNOMED: 916470831 (3) Constipation ICD Codes: K59.00 - Constipation, unspecified SNOMED: 24236367 Status: stable Assessment/Plan - s/p L TORRES on 05/24/17, POD#3 - encourage mobilization/ambulation - encourage incentive spirometry to optimize pulmonary hygiene - DVT/GI prophylaxis as appropriate - ctm CBC and hemodynamics - ctm electrolytes, adjust/replete prn - PT/OT - pain control, supportive care, bowel regimen - f/u vitamin D level - monitor cbc - DC planning to SNF, [facility] Subjective Date patient seen: May 27, 2017 Time patient seen: 12:00 ROS Limited/Unobtainable: No Constitutional: Reports: no symptoms HEENT: Reports: no symptoms Cardiovascular: Reports: no symptoms Respiratory: Reports: no symptoms Gastrointestinal/Abdominal: Reports: no symptoms Genitourinary: Reports: no symptoms Neurologic/Psychiatric: Reports: no symptoms Endocrine: Reports: no symptoms Hematologic/Lymphatic: Reports: no symptoms Allergies: Coded Allergies: No Known Allergies (Unverified , 05/23/17) All Systems: reviewed and negative except above Subjective Pain controlled D/c planning underway to SNF Working w/ PT/OT Objective Last 24 Hour Vital Signs Date Time Temp Pulse Resp B/P Pulse Ox O2 Delivery O2 Flow Rate FiO2 05/27/17 08:30 98.1 72 21 121/69 96 Room Air 05/27/17 04:00 97.8 87 18 122/67 94 Room Air 05/27/17 00:00 98.7 72 18 116/60 96 Room Air 05/26/17 21:59 98.6 05/26/17 20:00 98.6 77 18 131/58 96 Room Air Intake and Output 05/26/17 05/27/17 19:00 07:00 Intake Total 1025 ml Balance 1025 ml Intake Oral 650 ml IV Total 375 ml # Voids 3 3 # Bowel Movements 2 Laboratory Tests 05/27/17 05:30: White Blood Count 7.5, Red Blood Count 3.44L, Hemoglobin 10.8L, Hematocrit 32.8L , Mean Corpuscular Volume 95, Mean Corpuscular Hemoglobin 31.3H, Mean Corpuscular Hemoglobin Concent 32.9, Red Cell Distribution Width 11.1L, Platelet Count 258, Mean Platelet Volume 6.6, Neutrophils (%) (Auto) 69.8, Lymphocytes (%) (Auto) 20.5, Monocytes (%) (Auto) 8.4, Eosinophils (%) (Auto) 0.6, Basophils (%) (Auto) 0.7 Height (Feet): 5 Height (Inches): 3.00 Weight (Pounds): 120 Objective General: alert, cooperative, no distress, appears stated age Head: normocephalic, without obvious abnormality, atraumatic Eyes: conjunctivae/corneas clear. PERRL, EOM's intact Throat: lips, mucosa, and tongue normal. MMM Neck: supple, symmetrical, trachea midline, and no JVD Lungs: clear to auscultation bilaterally Heart: regular rate and rhythm, S1, S2 normal, no murmur, click, rub or gallop Abdomen: soft, non-tender, non-distended, bowel sounds normal; no masses or organomegaly Extremities: extremities normal, atraumatic, no cyanosis or edema Dressing c/d/i Pulses: 2+ and symmetric Skin: skin color, texture, turgor normal; no rashes or lesions Neurologic: grossly normal, no focal deficits Abisai Campa M.D. May 27, 2017 18:37
--- NOTE | 2017-05-30 13:04 | Discharge Summary ---
Discharge Summary Hospital Course Date of Admission May 23, 2017 at 20:11 Date of Discharge May 27, 2017 at 10:30 Admitting Diagnosis L hip fracture JEROME Cruz is a 61 year old female who was admitted on May 23, 2017 at 20:11 for Left Hip Fracture Hospital Course dc summary #[id number] Discharge Medications New Medications: Aspirin* (Aspirin Ec*) 325 Mg Tablet.dr 325 MG ORAL BID for 20 Days, #40 TAB Celecoxib* (Celebrex*) 200 Mg Capsule 200 MG ORAL DAILY, #30 CAP Docusate Sodium* (Colace*) 100 Mg Capsule 100 MG ORAL THREE TIMES A DAY for 10 Days, #30 CAP Ferrous Sulfate (Feosol) 325 Mg Tablet 325 MG ORAL THREE TIMES A DAY for 10 Days, #30 TAB Magnesium Hydroxide (Milk of Magnesia) 400 Mg/5 Ml Oral.susp 30 ML ORAL DAILYPRN PRN, #10 ML Oxycodone HCl (Oxycodone HCl) 5 Mg Tablet 5 MG ORAL Q4H PRN, #20 TAB Oxycodone Hcl Er* (Oxycontin*) 20 Mg Tab.er.12h 20 MG ORAL EVERY 12 HOURS, #20 TAB Polyethylene Glycol 3350* (Miralax*) 17 Gm Powd.pack 17 GM ORAL HSPRN PRN, #10 PACK Sennosides (Senna-Gen) 8.6 Mg Tablet 8.6 MG ORAL DAILY for 10 Days, #10 TAB Temazepam* (Restoril*) 7.5 Mg Capsule 7.5 MG ORAL DAILY PRN, #10 CAP Tramadol Hcl* (Ultram*) 50 Mg Tablet 50 MG ORAL Q4HR PRN, #20 TAB Continued Medications: Estradiol (Estradiol) 0.5 Mg Tablet 0.5 MG PO DAILY Discharge Condition Upon Discharge: stable Discharge Disposition Patient was discharged to SNF/Subacute Facility(03) Discharge Diagnoses: Keith ([place])Sarita NP May 30, 2017 13:04
--- NOTE | 2017-05-30 19:31 | Discharge Summary 2 SIG ---
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 She denied hitting her head. She denied blackouts, loss of consciousness. Son at the bedside and confirmed her story. CT of the pelvis along with x-ray of the left femur revealed left femoral neck fracture. The patient was admitted for further management. ADMITTING DIAGNOSES: 1. Status post mechanical fall. 2. Left femoral neck displaced fracture. HOSPITAL STAY: The patient was admitted. Orthopedic surgery consult was requested. The patient subsequently undergone on 05/25/2017 left total hip arthroplasty. Course of recovery was uneventful. Pain management provided. The patient started to work with physical therapy and occupational therapists. Fall precaution were maintained. The patient was able to walk with a walker independently. Incentive spirometry provided while in the bed, taught and encouraged the patient to use. The patient was on gentle hydration. After surgery the patient exhibited acute blood loss anemia. The patient started on iron supplement. Bowel regimen instituted. Constipation resolved. DVT prophylaxis provided with aspirin as per surgeon recommendation. The patient was stable for transfer to rehabilitation facility for further rehabilitation. FINAL DIAGNOSES: 1. Status post mechanical fall. 2. Left femoral neck displaced fracture. 3. Status post 05/25/2017 left total hip arthroplasty. 4. Left hip pain/postoperative pain. 5. Acute blood loss anemia. Hemoglobin 10.8, hematocrit 32.8 prior to discharge. 6. Constipation. DISCHARGE MEDICATIONS: See medication reconciliation list. DISCHARGE INSTRUCTIONS: The patient discharged to [facility] facility for rehabilitation. FOLLOWUP: Follow up with medical doctor at the facility. DISCHARGE MEDICATIONS: See medication reconciliation list. Albert Blank M.D. Sarita [facility] N.PKaci DR: [place] JOB#: [id number] CC: [place]
== END 2017-05-27 10:30 | DRG 470 ==
LOC: EDBD 17:18 → EMR 17:40 → 3E 20:11 → EDBD 20:11 → EDBEDREQ 20:37
PROC: 0SRB0JA Replacement of Left Hip Joint with Synthetic Substitute, Uncemented, Open Approach (ICD-10-PCS; principal; 2017-05-24 15:00)
DX: S72.012A Unspecified intracapsular fracture of left femur, initial encounter for closed fracture (principal); D62 Acute posthemorrhagic anemia; W19.XXXA Unspecified fall, initial encounter; Y93.H3 Activity, building and construction; Y92.69 Other specified industrial and construction area as the place of occurrence of the external cause; K59.00 Constipation, unspecified; M16.12 Unilateral primary osteoarthritis, left hip
CPT/HCPCS: 36415; 72170; 72192; 80048; 80053; 80061; 82306; 84443; 85007; 85025; 85610; 85730; 86850; 86900; 86901; 93970; 94003; 94150; J2250; J2405